=== PATIENT | female | born 1950 | race Asian ===

== ENCOUNTER → 2018-01-16 11:31 | Outpatient (CLI) | payer MEDICARE, OTHER, SELFPAY ==
--- NOTE | 2018-01-16 11:34 | DI.MRI.S_ITS ---
PROCEDURE: MR SHOULDER LT WO CON INDICATIONS: STRAIN OF UNSPECIFIED MUSCLE TECHNIQUE: Noncontrast oblique coronal T2 fast spin echo with fat saturation, oblique sagittal T1 spin echo and T2 fast spin echo with fat saturation, axial T1 spin echo and T2 fast spin echo with fat saturation through the shoulder. COMPARISON: [facility] Outside Film, RG, SHOULDER MIN 2VW (LT), 10/13/2017, 15:29. FINDINGS: Image quality: Diagnostic Rotator cuff: No definite full-thickness tear the rotator cuff is identified. However, there is a high-grade articular surface partial-thickness tear identified involving the anterior distal supraspinatus tendon at the level of the foot print with corresponding tendinopathy. Bursal surface fibers appear intact. There is corresponding tendinopathy. Low grade articular surface partial thickness tearing and tendinopathy is also present involving the distal subscapularis tendon. There is mild infraspinatus tendinopathy. The teres minor tendon is intact. There is no significant atrophy of the rotator cuff muscles. Bones and bursae: There is no acute fracture, dislocation, or suspicious osseous lesion of the osseous structures of the left shoulder. Mild degenerative changes of the glenohumeral joint are present. There are moderate degenerative changes of the acromioclavicular joint. A large amount of fluid is contained within the subacromial subdeltoid bursa. No significant joint effusions are evident. Capsule and soft tissues: Evaluation of the labrum and glenohumeral ligaments is difficult without intra-articular contrast. Heterogeneity of the superior labrum is identified, which may represent superior labral degeneration. No large paralabral cysts are evident. The long head of the biceps tendon is not definitely seen within the bicipital groove and may be completely torn. No acute injuries are suspected involving the glenohumeral ligaments. IMPRESSION: 1. High grade articular surface partial thickness tear of the distal supraspinatus tendon with corresponding tendinopathy. 2. Upper partial-thickness tearing and tendinopathy of the distal subscapularis tendon. 3. Mild infraspinatus tendinopathy. 4. Mild to moderate degenerative changes of the glenohumeral and acromioclavicular joints. 5. Superior labral tearing may be degenerative/chronic. 6. The long head of biceps tendon is not clearly seen, which is suspected to be at least partially torn. Please correlate clinically to exclude complete disruption of this tendon. Dictated by: Carlos Taylor M.D. on 01/16/2018 at 13:28 Approved by: Carlos Taylor M.D. on 01/16/2018 at 13:42
== END ==
PROVIDERS: Visit Provider Orthopaedic Surgery
DX: S43.492A Other sprain of left shoulder joint, initial encounter (principal); M75.112 Incomplete rotator cuff tear or rupture of left shoulder, not specified as traumatic; M19.012 Primary osteoarthritis, left shoulder
CPT/HCPCS: 73221

== ENCOUNTER → 2018-07-06 15:58 | Outpatient (CLI) | payer MEDICARE, OTHER, SELFPAY ==
--- NOTE | 2018-07-06 | DI.MRI.S_ITS ---
PROCEDURE: MR LUMBAR SPINE WO CON INDICATIONS: Low back pain TECHNIQUE: Noncontrast sagittal T1 spin echo and T2 fast echo, sagittal STIR, axial T1 and T2 fast spin echo through the lumbar spine. In cases with scoliosis, additional coronal T2 fast spin echo may be performed. COMPARISON: None. FINDINGS: Image quality: Excellent. Alignment and Curvature: There is normal bony alignment. Minimal anterolisthesis is seen at the L5-S1 level. Bone Marrow: Marrow is of normal overall signal. No acute vertebral body compression fractures. Spinal Cord: Conus medullaris terminates at the L1 level. Visualized cord demonstrates normal signal and size. Paraspinous Soft Tissues: No paravertebral masses. T12-L1: Normal appearance. L1-L2: Normal appearance. L2-L3: No significant abnormality is seen. L3-L4: The disc height is well-preserved. Loss of disc signal is seen at this level. Mild disc bulge is seen, which is eccentric to the right. There is a mild disc protrusion seen into the right neural foramen. There is mild to moderate right-sided and no significant left-sided neural foraminal narrowing seen. No significant central canal narrowing is seen. L4-L5: The disc height is well-preserved. Loss of disc signal is seen at this level. Mild generalized disc bulge is seen. Moderate facet joint hypertrophy is seen. Nxtu-kt-[id number] bilateral neural foraminal narrowing is seen. Minimal central canal narrowing is seen. L5-S1: The disc height is well-preserved. Loss of disc signal is seen at this level. Mild generalized disc bulge is seen. Moderate to prominent facet hypertrophy is seen. There is mild right-sided and no significant left-sided neural foraminal narrowing seen. No significant central canal narrowing is seen. IMPRESSION: Lumbar spine degenerative changes are seen, which are overall most prominent at the L5-S1 level. At the L3-L4 level, there is a disc protrusion seen into the right neural foramen, with associated mild to moderate right-sided neural foraminal narrowing. Dictated by: Nader Davenport M.D. on 07/06/2018 at 17:05 Approved by: Nader Davenport M.D. on 07/06/2018 at 17:09
== END ==
PROVIDERS: PCP Internal Medicine; Visit Provider Physical Medicine & Rehabilitation Pain Medicine
DX: M47.816 Spondylosis without myelopathy or radiculopathy, lumbar region (principal); M47.817 Spondylosis without myelopathy or radiculopathy, lumbosacral region; M51.26 Other intervertebral disc displacement, lumbar region; M48.061 Spinal stenosis, lumbar region without neurogenic claudication
CPT/HCPCS: 72148

== ENCOUNTER → 2019-01-05 13:44 | Outpatient (CLI) | payer MEDICARE, OTHER, SELFPAY ==
--- NOTE | 2019-01-05 | DI.MG.S_ITS ---
BILATERAL DIGITAL SCREENING MAMMOGRAM 3D/2D WITH CAD: 01/05/2019 CLINICAL: Routine screening. Comparison is made to exams dated: 12/20/2017 mammogram, 01/04/2017 mammogram, and 09/22/2015 mammogram - [facility]. There are scattered fibroglandular elements in both breasts. Current study was also evaluated with a Computer Aided Detection (CAD) system. No significant masses, calcifications, or other findings are seen in either breast. There has been no significant interval change. IMPRESSION: NEGATIVE There is no mammographic evidence of malignancy. A 1 year screening mammogram is recommended. This exam was interpreted at Station ID: [id number]. NOTE: For mammograms, a report in lay terms will be sent to the patient. Approximately 15% of breast malignancies will not be visualized mammographically. In the management of a palpable breast mass, a negative mammogram must not discourage biopsy of a clinically suspicious lesion. Electronically Signed By: Santana henry/sammie:01/07/2019 22:01:15 letter sent: Normal Exam ACR BI-RADS Category 1: Negative [id number]
== END ==
PROVIDERS: PCP Internal Medicine; Visit Provider Internal Medicine
DX: Z12.31 Encounter for screening mammogram for malignant neoplasm of breast (principal)
CPT/HCPCS: 77063; 77067

== ENCOUNTER → 2019-05-09 12:15 | Outpatient (CLI) | payer MEDICARE, OTHER, SELFPAY ==
[2019-05-09 13:02] LABS: BUN Creatinine Ratio 24.3 (6-22); Blood Urea Nitrogen 17 mg/dL (7-17); Calcium 9.7 mg/dL (8.4-10.2); Carbon Dioxide 26 mmol/L (22-32); Chloride 103 mmol/L (98-107); Estimated Glomerular Filt Rate > 60.0 mL/min (>60); Glucose 110 mg/dL (80-110); HEMOLYSIS < 15 (0-50); Potassium 4.5 mmol/L (3.4-5.1); Sodium 139 mmol/L (137-145)
== END ==
PROVIDERS: PCP Internal Medicine; Referring Provider Internal Medicine; Visit Provider Internal Medicine
DX: I10 Essential (primary) hypertension (principal)
CPT/HCPCS: 36415; 80048

== ENCOUNTER 2019-06-26 10:50 | Emergency (ER) | payer MEDICARE, OTHER, SELFPAY ==
[2019-06-26 10:59] VITALS: BP 193/108; PULSE 100; RESP 12; TEMP 36.6; O2SAT 100
--- NOTE | 2019-06-26 11:27 | DI.MRI.S_ITS ---
PROCEDURE: MR KNEE LT WO CON INDICATIONS: injury, swelling, neuro vasc changes distal TECHNIQUE: Noncontrast sagittal PD fast spin echo and T2 fast spin echo with fat saturation, sagittal 3-D FLASH with fat saturation; coronal T1 spin echo and PD fast spin echo with fat saturation, and axial PD fast spin echo with fat saturation through the knee. COMPARISON: None. FINDINGS: Image quality: Excellent. Menisci: The linear oblique high T2 signal intensity traverses the posterior horn medial meniscus, demonstrating inferior articular surface extension. Degenerative fraying of the free edge of the anterior horn medial meniscus. Linear oblique high T2 signal intensity traverses the anterior horn lateral meniscus, demonstrating inferior articular surface extension. Horizontally oriented high T2 signal intensity traverses the posterior horn lateral meniscus free edge, demonstrating inferior articular surface extension. Cruciate ligaments: There is a small focus of linear high T2 signal intensity within the mid and inferior posterior cruciate ligament, indicating low-grade partial-thickness tearing. There is mild redundancy of the anterior cruciate ligament which demonstrates moderate enlargement and internal T2 signal lesion, indicating partial thickness tearing. Medial structures: The medial collateral ligament appears intact. Visualized portions of the pes anserinus tendons appear normal. No abnormal bursal fluid. Lateral structures: The lateral collateral ligament demonstrates moderate T2 signal elevation at its femoral origin. The long and short heads of the biceps femoris tendon appear intact. The popliteus tendon appears normal. Iliotibial band appears normal. Anterior structures: The quadriceps and patellar tendons appear intact. Patellar alignment is normal. No femoral trochlear dysplasia or ventral trochlear prominence. No edema in the infrapatellar fat pad. Bones and cartilage: No bone marrow contusions or fractures. Mild tricompartmental periarticular osteophyte formation. Mild articular cartilage loss diffusely overlies the weightbearing aspects of the medial and lateral compartments. Joint space: There is a moderate knee joint effusion and a small Michel's cyst. Normal appearing synovial plicae are incidentally noted. IMPRESSION: 1. Partial-thickness tears of the anterior and posterior cruciate ligaments. 2. Medial and lateral meniscal tearing. 3. Knee joint effusion and Michel's cyst. 4. Partial-thickness lateral collateral ligament tear. Dictated by: Angie Pop M.D. on 06/26/2019 at 14:10 Approved by: Angie Pop M.D. on 06/26/2019 at 14:15
--- NOTE | 2019-06-26 11:28 | ED.LOWEXIN ---
HPI - Extremity Injury (Lower) General Chief Complaint: Extremity Injury, Lower Stated Complaint: Lt knee Time Seen by Provider: 06/26/19 11:03 Mode of arrival: Wheelchair History of Present Illness HPI Narrative: 68-year-old type 2 diabetic with hypertension hyperlipidemia presents 3 weeks after a left knee injury. She was doing some housework and had a twisting turning type injury to the left knee. Because of current Covid19 concerns, she did not seek any medical intervention. The knee was initially swollen and very tender. It has remained swollen, non erythematous, and she notices decreased sensation from the knee distal. Also complains that that foot is significantly colder than the right foot. She remains unable to bear any weight at all on the left extremity. Related Data Home Medications Medication Instructions Recorded Confirmed COQ10 300 mg PO DAILY 06/26/18 12/27/18 amitriptyline 25 mg tablet 25 mg PO DAILY 06/26/18 12/27/18 aspirin 81 mg tablet,delayed 81 mg PO DAILY 06/26/18 12/27/18 release azelastine 137 mcg (0.1 %) nasal 2 spray NASAL BID 06/26/18 12/27/18 spray aerosol calcium carbonate 333 mg-magnesium tab PO tab 06/26/18 12/27/18 oxide 133 mg-zinc gluc 5 mg tablet carboxymethylcellulose sodium EYE-BOTH ml 06/26/18 12/27/18 esomeprazole magnesium 40 mg 40 mg PO DAILY cap 06/26/18 12/27/18 capsule,delayed release fexofenadine 180 mg tablet 180 mg PO DAILY 06/26/18 12/27/18 ibuactin and migragard PO 06/26/18 12/27/18 krill oil 500 mg capsule mg PO cap 06/26/18 12/27/18 lisinopril 5 mg tablet 5 mg PO DAILY 06/26/18 12/27/18 lysine 500 mg tablet 500 mg PO DAILY 06/26/18 12/27/18 metformin 1,000 mg tablet 1,000 mg PO BID 06/26/18 12/27/18 simvastatin 40 mg tablet 40 mg PO BEDTIME 06/26/18 12/27/18 Respironics Dreamstation CPAP #1 ea 06/28/18 12/27/18 Allergies Allergy/AdvReac Type Severity Reaction Status Date / Time No Known Drug Allergies Allergy Unverified 06/28/18 10:26 Review of Systems Review of Systems Narrative: Pertinent positive and negative findings as per HPI, including MS: numbness, joint swelling and warmth left lower extremity with inability to walk and significant gait disturbance due to that. Remainder of review of systems is otherwise unremarkable for Constitutional: Fevers, chills, weakness ENT: No sore throat, neck pain, ear pain CV: Chest pain, palpitations, dyspnea on exertion Respiratory: Cough, wheeze, dyspnea GI: Nausea, vomiting, diarrhea, change in bowel habits, black or bloody stools : Dysuria, hematuria, flank pain Psych: Depression, anxiety, suicidal ideation Endocrine: Fatigue, heat or cold intolerance, very dry skin Heme: Easy bruising or bleeding Allergy: Seasonal rhinorrhea, itchy eyes Patient History Medical History Depression (Chronic) GERD (gastroesophageal reflux disease) (Chronic) Hyperlipidemia (Chronic) Hypertension (Chronic) Obstructive sleep apnea of adult (Chronic) Type 2 diabetes mellitus (Chronic) Social History marital status: details: to Melvin, lives in [place] household members: spouse lives independently: Yes caregiver/support person: No housing: house Smoking Status: Never smoker Smoking Status: Never smoker alcohol intake frequency: holidays/special occasions only Substance Use Type: does not use Exam Narrative Exam Narrative: General: Alert appropriate in no acute distress Respiratory: Able to speak in full sentences, no obvious respiratory distress Skin: No obvious rashes, warm and dry Neurologic: Grossly intact no obvious asymmetries or abnormalities Psych, appropriate insight and affect, cooperative Extremities: Left knee with joint effusion mediolateral and suprapatellar, tender with any manipulation and full exam is limited due to this. She is tender in the popliteal fossa and the distal portion of the leg has decreased sensation to fine touch compared to the right side in a stocking like distribution. She has palpable dorsalis pedis and posterior tibialis pulses on the left side however they are subjectively diminished in comparison to the right side. Due to edema I am not able to palpate popliteal arteries. She has full and symmetrical inguinal arterial pulses. She is able to flex and extend ankle as well as all toes on the left side. There is no skin breakdown. She does have reasonable capillary refill however approximately 2 cm slower on the left than the right side. Initial Vital Signs Initial Vital Signs: Vital Signs Temperature 98 F 06/26/19 10:59 Pulse Rate 100 H 06/26/19 10:59 Respiratory Rate 12 06/26/19 10:59 Blood Pressure 193/108 H 06/26/19 10:59 Pulse Oximetry 100 06/26/19 10:59 Course Orders Ordered: ED Orders 06/26/19 11:27 MR knee LT wo con Stat Vital Signs Vital signs: Vital Signs - 8 hr 06/26/19 10:59 06/26/19 12:23 06/26/19 14:50 Temperature 98 F Pulse Rate 100 H 89 Respiratory Rate 12 Blood Pressure 193/108 H Blood Pressure [Right Arm] 128/69 124/81 Pulse Oximetry 100 98 MDM - Extremity Injury (Lower) Medical Records Attestation: I reviewed the patient's medical records. Lab Data Labs: Point of Care Testing Glucose POC 109 Imaging Data CA knee: Radiologist's Impression: IMPRESSION: 1. Partial-thickness tears of the anterior and posterior cruciate ligaments. 2. Medial and lateral meniscal tearing. 3. Knee joint effusion and Michel's cyst. 4. Partial-thickness lateral collateral ligament tear. Dictated by: Angie Pop M.D. on 06/26/2019 at 14:10 MDM Narrative Medical decision making narrative: 68-year-old woman with left knee injury 3 weeks ago this is her initial encounter for follow-up. Continued swelling and inability to bear weight. I am concerned with the complaints of decreased sensation distally as well as the slight decrease in capillary refill and distal pulses that do not seem quite as full as the right side. With the twisting turning injury she may have some type of dissection it may simply be that it has decreased lymphatic and or venous blood flow due to the knee effusion that is causing congestion and associated symptoms in the left lower extremity. Of note, there is not more edema in the ankle foot or lower leg in comparison to the right side. In discussion with Radiology, we opted to proceed with MRI of the left knee initially. If there is an obvious musculoskeletal abnormality then it may make vascular imaging left pertinent. With a degree of injury to almost all of the components of the knee, including tears of the anterior and posterior cruciate ligaments, medial and lateral meniscal tears, lateral collateral ligament tear and a joint effusion and Michel cyst the pain, swelling and intermittent numbness are explained. She will be placed in a knee immobilizer with follow-up with ortho. Discharge Plan Departure Patient Disposition: Home Clinical Impression: Tear of both anterior and posterior cruciate ligaments of knee, Effusion of knee joint, left Acute meniscal tear, lateral Qualifiers: Encounter type: initial encounter Laterality: left Qualified Code(s): S83.282A - Other tear of lateral meniscus, current injury, left knee, initial encounter Acute meniscal tear, medial Qualifiers: Encounter type: initial encounter Laterality: left Qualified Code(s): S83.242A - Other tear of medial meniscus, current injury, left knee, initial encounter Tear of knee, lateral collateral ligament Qualifiers: Encounter type: initial encounter Laterality: left Qualified Code(s): S83.422A - Sprain of lateral collateral ligament of left knee, initial encounter Michel's cyst Qualifiers: Laterality: left Qualified Code(s): M71.22 - Synovial cyst of popliteal space [Michel], left knee Discharge Date/Time: 06/26/19 15:15 Instructions: DI for Anterior Cruciate Ligament Injury, DI for Meniscal Tear Activity Restrictions/Additional Instructions: Thank you for coming in today You had a significant knee injury and may end up needing surgery. You have partial tears of both the anterior and posterior cruciate ligaments, partial tears of the medial and lateral meniscus and a partial tear of the lateral collateral ligament Please use the crutches and a wheelchair as needed. This knee is not stable and you should not be walking on it. Dr Brantley with help with an appropriate brace for you to use when you see her tomorrow. Ice can certainly help with the pain. Using 400 mg of ibuprofen (2 [id number] pills) and 1 Tylenol every 6 hours can be very helpful in controlling pain. You have and apt with Dr Daisy Brantley tomorrow at 9am, [place] office. I hope you heal quickly Prescriptions: No Action fexofenadine 180 mg tablet 180 mg PO DAILY RF: 0 aspirin [Adult Low Dose Aspirin] 81 mg tablet,delayed release (DR/EC) 81 mg PO DAILY RF: 0 simvastatin 40 mg tablet 40 mg PO BEDTIME RF: 0 amitriptyline 25 mg tablet 25 mg PO DAILY RF: 0 metformin 1,000 mg tablet 1,000 mg PO BID RF: 0 esomeprazole magnesium 40 mg capsule,delayed release(DR/EC) 40 mg PO DAILY RF: 0 lisinopril 5 mg tablet 5 mg PO DAILY RF: 0 azelastine 137 mcg (0.1 %) aerosol,spray 2 spray NASAL BID RF: 0 lysine 500 mg tablet 500 mg PO DAILY RF: 0 carboxymethylcellulose sodium drops EYE-BOTH RF: 0 krill oil 500 mg capsule PO RF: 0 calcium carb-mag ox-zinc gluc 333-133-5 mg tablet PO RF: 0 COQ10 300 mg PO DAILY RF: 0 ibuactin and migragard PO RF: 0 (DME) Respironics Dreamstation CPAP Qty: 1 RF: 0 Referrals: Kristine Silver [Primary Care Provider] - Daisy Brantley MD [Physician] -
[2019-06-26 12:23] VITALS: BP 128/69
--- NOTE | 2019-06-26 14:36 | PC.NURSE ---
pt reports, cleaning floor by foot, 3 weeks ago heard a cruch, pt continue to be working on the yard, then pt heard a pop 2 weeks ago, now , pt reports, increase in swellilng and pain left knee. sensation of numbness and tingling, cold sensation left lower leg, hx of dm.
[2019-06-26 14:50] VITALS: BP 124/81; PULSE 89; O2SAT 98
== END 2019-06-26 15:15 | disposition home or self-care (01) ==
PROVIDERS: Emergency Provider Emergency Medicine; PCP Internal Medicine
DX: S83.519A Sprain of anterior cruciate ligament of unspecified knee, initial encounter (principal); S83.282A Other tear of lateral meniscus, current injury, left knee, initial encounter; S83.242A Other tear of medial meniscus, current injury, left knee, initial encounter; S83.422A Sprain of lateral collateral ligament of left knee, initial encounter; M71.22 Synovial cyst of popliteal space [Baker], left knee; M25.462 Effusion, left knee; I10 Essential (primary) hypertension; E78.5 Hyperlipidemia, unspecified; E11.9 Type 2 diabetes mellitus without complications
CPT/HCPCS: 73721; 82962; 99283

== ENCOUNTER 2020-01-04 06:19 | Emergency (ER) | payer MEDICARE, OTHER, SELFPAY ==
[2020-01-04] VITALS (11 sets, daily range): BP systolic 136–175; BP diastolic 63–84; PULSE 66–96; RESP 16–18; TEMP 36.6; O2SAT 97–100
--- NOTE | 2020-01-04 06:47 | ED.ABDPAIN ---
HPI - Abdominal Pain <Fernandez Wild, DO - Last Filed: 01/04/20 19:28> General Chief Complaint: Abdominal Pain Stated Complaint: Lower right side pain, more by her bellybutton Time Seen by Provider: 01/04/20 06:34 Source: patient Mode of arrival: Ambulatory Limitations: no limitations History of Present Illness HPI narrative: Patient is a 69-year-old female here for evaluation of lower abdomen with right side being the most uncomfortable abdominal pain. Patient states she has had some low-grade abdominal pain over the past couple days however overnight the pain became suddenly worse. She states it is a sharp pain. Worse with lying down and touching. It seems to be located on both sides of her lower abdomen however she does report that is worse on the right side is radiating to her back. She is having some dysuria. No vaginal bleeding. No change in bowel habits. No nausea vomiting. Has not tried anything for symptoms prior to arrival. She states that when the pain was at its worst her blood pressure was elevated. She denies any chest pain or shortness of breath. Related Data Home Medications Medication Instructions Recorded Confirmed COQ10 300 mg PO DAILY 06/26/18 12/27/18 amitriptyline 25 mg tablet 25 mg PO DAILY 06/26/18 12/27/18 aspirin 81 mg tablet,delayed 81 mg PO DAILY 06/26/18 12/27/18 release azelastine 137 mcg (0.1 %) nasal 2 spray NASAL BID 06/26/18 12/27/18 spray aerosol calcium carbonate 333 mg-magnesium tab PO tab 06/26/18 12/27/18 oxide 133 mg-zinc gluc 5 mg tablet carboxymethylcellulose sodium EYE-BOTH ml 06/26/18 12/27/18 esomeprazole magnesium 40 mg 40 mg PO DAILY cap 06/26/18 12/27/18 capsule,delayed release fexofenadine 180 mg tablet 180 mg PO DAILY 06/26/18 12/27/18 ibuactin and migragard PO 06/26/18 12/27/18 krill oil 500 mg capsule mg PO cap 06/26/18 12/27/18 lisinopril 5 mg tablet 5 mg PO DAILY 06/26/18 12/27/18 lysine 500 mg tablet 500 mg PO DAILY 06/26/18 12/27/18 metformin 1,000 mg tablet 1,000 mg PO BID 06/26/18 12/27/18 simvastatin 40 mg tablet 40 mg PO BEDTIME 06/26/18 12/27/18 Respironics Dreamstation CPAP #1 [id number] 06/28/18 12/27/18 Previous Rx's Medication Instructions Recorded ciprofloxacin HCl [Cipro] 500 mg PO BID #20 tab 01/04/20 metronidazole [Flagyl] 500 mg PO Q8H #30 tab 01/04/20 Allergies Allergy/AdvReac Type Severity Reaction Status Date / Time No Known Drug Allergies Allergy Unverified 06/28/18 10:26 Review of Systems <Fernandez Wild DO - Last Filed: 01/04/20 19:28> Constitutional Constitutional: Denies fever(s) and Denies headache(s) ENT Ears, Nose, Mouth, and Throat: Denies headache(s) Cardiovascular Cardiovascular: Denies chest pain and Denies dyspnea Respiratory Respiratory: Denies dyspnea Gastrointestinal Gastrointestinal: Reports abdominal pain, Denies melena, Denies change in bowel habits, Denies constipation, Denies diarrhea, Denies nausea and Denies vomiting Genitourinary Genitourinary: Reports dysuria, Denies urinary hesitancy, Denies urinary incontinence and Denies urinary urgency Genitourinary: Reports dysuria, Denies urinary incontinence, Denies urinary hesitancy, Denies urinary urgency and Denies vaginal discharge Musculoskeletal Musculoskeletal: Denies arthralgias, Reports back pain (Lower back pain) and Denies myalgias Integumentary/Breasts Skin/Breast: Denies rash Neurologic Neurologic: Denies behavioral changes, Denies confusion and Denies headache(s) Psychiatric Psychiatric: Denies behavioral changes and Denies confusion Hematologic/Lymphatic Hematologic/Lymphatic: Denies easy bleeding and Denies easy bruising Allergic/Immunologic Allergic/Immunologic: Denies urticaria Patient History <Fernandez Wild DO - Last Filed: 01/04/20 19:28> Medical History Depression (Chronic) GERD (gastroesophageal reflux disease) (Chronic) Hyperlipidemia (Chronic) Hypertension (Chronic) Obstructive sleep apnea of adult (Chronic) Type 2 diabetes mellitus (Chronic) Social History marital status: details: to Melvin, lives in [place] household members: spouse lives independently: Yes caregiver/support person: No housing: house Smoking Status: Never smoker Smoking Status: Never smoker alcohol intake frequency: holidays/special occasions only Substance Use Type: does not use Exam <DO Lilliana Bullock Last Filed: 01/04/20 19:28> Initial Vital Signs Initial Vital Signs: Vital Signs Temperature 98 F 01/04/20 06:20 Pulse Rate 96 H 01/04/20 06:20 Respiratory Rate 18 01/04/20 06:20 Blood Pressure 175/84 H 01/04/20 06:20 Pulse Oximetry 98 01/04/20 06:20 Const General: cooperative and comfortable Limitations: mental status not altered HENDE Head: normal to inspection and normocephalic Resp Effort & Inspection: normal respiratory effort Cardio Rate: regular rate GI Inspection: non-distended Palpation: soft, No firm, guarding and tender (Right lower quadrant) Skin Lesions: no lesions Rashes: no rashes Neuro General: patient alert, patient awake and patient oriented x3 Cognition: normal cognition Speech: speech normal Gait: normal gait Extrem General: normal to inspection and capillary refill normal Psych Appearance: grossly normal and well kempt <Conchita Mckeon DO - Last Filed: 01/04/20 11:18> Initial Vital Signs Initial Vital Signs: Vital Signs Temperature 98 F 01/04/20 06:20 Pulse Rate 96 H 01/04/20 06:20 Respiratory Rate 18 01/04/20 06:20 Blood Pressure 175/84 H 01/04/20 06:20 Pulse Oximetry 98 01/04/20 06:20 Scores <DO Lilliana Bullock Last Filed: 01/04/20 19:28> GCS [place] coma scale eye opening: Spontaneous [place] coma scale verbal response: Orientated Eliseo coma scale motor response: Obey commands Eliseo coma scale total score: 15 Course <DO Lilliana Bullock Last Filed: 01/04/20 19:28> Orders Ordered: Discontinued Medications Sodium Chloride (Normal Saline 0.9%) 1,000 mls @ 1,000 mls/hr IV BOLUS ONE Stop: 01/04/20 09:15 Last Infusion: 01/04/20 10:02 Dose: 0 mls/hr Documented by: Admin: 01/04/20 08:20 Dose: 1,000 mls/hr Documented by: MADELINE Levofloxacin (Levaquin) 750 mg in 150 mls @ 100 mls/hr IV NOW ONE Stop: 01/04/20 09:58 Last Infusion: 01/04/20 13:22 Dose: 0 mls/hr Documented by: Admin: 01/04/20 09:07 Dose: 100 mls/hr Documented by: MADELINE Metronidazole (Flagyl) 500 mg in 100 mls @ 100 mls/hr IV NOW ONE Stop: 01/04/20 09:28 Last Infusion: 01/04/20 10:09 Dose: 0 mls/hr Documented by: Admin: 01/04/20 09:00 Dose: 100 mls/hr Documented by: MADELINE Sodium Chloride (Normal Saline 0.9%) 1,000 mls @ 1,000 mls/hr IV BOLUS ONE Stop: 01/04/20 09:28 Last Infusion: 01/04/20 13:22 Dose: 0 mls/hr Documented by: Admin: 01/04/20 09:01 Dose: 1,000 mls/hr Documented by: MADELINE Vital Signs Vital signs: Vital Signs - 8 hr 01/04/20 06:20 01/04/20 07:04 01/04/20 07:30 Temperature 98 F Pulse Rate 96 H 79 76 Respiratory Rate 18 Blood Pressure 175/84 H Pulse Oximetry 98 98 97 01/04/20 08:03 01/04/20 08:04 01/04/20 08:30 Temperature Pulse Rate 74 73 74 Respiratory Rate 16 Blood Pressure 151/67 H Pulse Oximetry 99 99 99 01/04/20 08:31 01/04/20 09:00 01/04/20 09:30 Temperature Pulse Rate 73 74 68 Respiratory Rate 16 16 16 Blood Pressure 136/63 139/79 156/66 H Pulse Oximetry 99 99 99 01/04/20 10:00 01/04/20 10:30 Temperature Pulse Rate 67 66 Respiratory Rate 16 16 Blood Pressure 166/72 H 149/70 H Pulse Oximetry 100 100 <Conchita Mckeon, - Last Filed: 01/04/20 11:18> Orders Ordered: Discontinued Medications Sodium Chloride (Normal Saline 0.9%) 1,000 mls @ 1,000 mls/hr IV BOLUS ONE Stop: 01/04/20 09:15 Last Infusion: 01/04/20 10:02 Dose: 0 mls/hr Documented by: Admin: 01/04/20 08:20 Dose: 1,000 mls/hr Documented by: MADELINE Levofloxacin (Levaquin) 750 mg in 150 mls @ 100 mls/hr IV NOW ONE Stop: 01/04/20 09:58 Last Infusion: 01/04/20 13:22 Dose: 0 mls/hr Documented by: Admin: 01/04/20 09:07 Dose: 100 mls/hr Documented by: MADELINE Metronidazole (Flagyl) 500 mg in 100 mls @ 100 mls/hr IV NOW ONE Stop: 01/04/20 09:28 Last Infusion: 01/04/20 10:09 Dose: 0 mls/hr Documented by: Admin: 01/04/20 09:00 Dose: 100 mls/hr Documented by: MADELINE Sodium Chloride (Normal Saline 0.9%) 1,000 mls @ 1,000 mls/hr IV BOLUS ONE Stop: 01/04/20 09:28 Last Infusion: 01/04/20 13:22 Dose: 0 mls/hr Documented by: Admin: 01/04/20 09:01 Dose: 1,000 mls/hr Documented by: MADELINE Vital Signs Vital signs: Vital Signs - 8 hr 01/04/20 06:20 01/04/20 07:04 01/04/20 07:30 Temperature 98 F Pulse Rate 96 H 79 76 Respiratory Rate 18 Blood Pressure 175/84 H Pulse Oximetry 98 98 97 01/04/20 08:03 01/04/20 08:04 01/04/20 08:30 Temperature Pulse Rate 74 73 74 Respiratory Rate 16 Blood Pressure 151/67 H Pulse Oximetry 99 99 99 01/04/20 08:31 01/04/20 09:00 01/04/20 09:30 Temperature Pulse Rate 73 74 68 Respiratory Rate 16 16 16 Blood Pressure 136/63 139/79 156/66 H Pulse Oximetry 99 99 99 01/04/20 10:00 01/04/20 10:30 Temperature Pulse Rate 67 66 Respiratory Rate 16 16 Blood Pressure 166/72 H 149/70 H Pulse Oximetry 100 100 MDM - Abdominal Pain <Fernandez Lanker, DO - Last Filed: 01/04/20 19:28> Lab Data Result diagrams: 01/04/20 07:00 01/04/20 07:00 Labs: Lab Results 01/04/20 01/04/20 01/04/20 Range/Units 07:00 07:00 07:00 WBC 7.7 (4.5-11.0) X10^3/uL RBC 5.13 (4.0-5.2) X10^6/uL Hgb 14.9 (12.0-16.0) g/dL Hct 44.6 (36-46) % MCV 86.8 (80-100) fL MCH 29.0 (26-34) PG MCHC 33.4 (30-36) % RDW 13.1 (11.6-14.8) % Plt Count 200 (150-400) X10^3/uL Neut % (Auto) 45.4 L (50-75) % Lymph % (Auto) 39.1 (25-40) % [place] % (Auto) 9.7 (3-14) % Eos % (Auto) 5.0 H (2-4) % Baso % (Auto) 0.8 (0-2) % Neut # (Auto) 3500 (2811-6615) /uL Lymph # (Auto) 3000 (2271-3407) /uL [place] # (Auto) 700 (0-900) /uL Eos # (Auto) 400 (0-450) /uL Baso # (Auto) 100 (0-100) /uL Sodium 138 (137-145) mmol/L Potassium 4.4 (3.4-5.1) mmol/L Chloride 104 (98-107) mmol/L Carbon Dioxide 24 (22-32) mmol/L BUN 18 H (7-17) mg/dL Creatinine 0.60 (0.52-1.04) mg/dL Estimated GFR > 60.0 (>60) mL/min BUN/Creatinine Ratio 30.0 H (6-22) Glucose 172 H (80-110) mg/dL Lactate 3.1 H (0.7-2.1) mmol/L Calcium 9.6 (8.4-10.2) mg/dL Total Bilirubin 0.5 (0.2-1.3) mg/dL AST 42 H (14-36) IU/L ALT 46 H (<35) IU/L Alkaline Phosphatase 94 (38-126) U/L Total Protein 7.7 (6.3-8.2) g/dL Albumin 4.5 (3.5-5.0) g/dL Globulin 3.2 (1.7-4.1) g/dL Albumin/Globulin Ratio 1.4 (1.0-2.8) Lipase (23-300) U/L 01/04/20 01/04/20 Range/Units 07:00 10:00 WBC (4.5-11.0) X10^3/uL RBC (4.0-5.2) X10^6/uL Hgb (12.0-16.0) g/dL Hct (36-46) % MCV (80-100) fL MCH (26-34) PG MCHC (30-36) % RDW (11.6-14.8) % Plt Count (150-400) X10^3/uL Neut % (Auto) (50-75) % Lymph % (Auto) (25-40) % [place] % (Auto) (3-14) % Eos % (Auto) (2-4) % Baso % (Auto) (0-2) % Neut # (Auto) (0350-8812) /uL Lymph # (Auto) (3440-6370) /uL [place] # (Auto) (0-900) /uL Eos # (Auto) (0-450) /uL Baso # (Auto) (0-100) /uL Sodium (137-145) mmol/L Potassium (3.4-5.1) mmol/L Chloride (98-107) mmol/L Carbon Dioxide (22-32) mmol/L BUN (7-17) mg/dL Creatinine (0.52-1.04) mg/dL Estimated GFR (>60) mL/min BUN/Creatinine Ratio (6-22) Glucose (80-110) mg/dL Lactate 2.1 (0.7-2.1) mmol/L Calcium (8.4-10.2) mg/dL Total Bilirubin (0.2-1.3) mg/dL AST (14-36) IU/L ALT (<35) IU/L Alkaline Phosphatase (38-126) U/L Total Protein (6.3-8.2) g/dL Albumin (3.5-5.0) g/dL Globulin (1.7-4.1) g/dL Albumin/Globulin Ratio (1.0-2.8) Lipase 167 (23-300) U/L Point of care testing: Urine Dip Bedside Urine Glucose Negative Bedside Urine Bilirubin - Negative Bedside Urine Ketone - Negative Urine Specific [place] 1.015 Bedside Urine Occult Blood - Negative Bedside Urine pH 6.0 Bedside Urine Protein - Negative Bedside Urine Urobilinogen - Negative Bedside Urine Nitrite - Negative Bedside Urine Leukocytes - Negative Esterase MDM Narrative Medical decision making narrative: Despite her dysuria the patient's urinalysis shows no signs of infection. Has had the lower abdominal pain for the past couple days but it did worsen last evening and woke her up from her sleep. She is somewhat tender on both sides of her lower abdomen but it does seem to be located in the right lower quadrant with guarding. She is afebrile. Not tachycardic. She denied the offer for any nausea or pain medication. Given her age in her symptoms of feel labs and CT scan are warranted. Care turned over to Dr. Mckeon at change of shift to follow up on labs and CT result. <Conchita Mckeon, DO - Last Filed: 01/04/20 11:18> Lab Data Attestation: I reviewed the patient's lab results. Labs: Lab Results 01/04/20 01/04/20 01/04/20 Range/Units 07:00 07:00 07:00 WBC 7.7 (4.5-11.0) X10^3/uL RBC 5.13 (4.0-5.2) X10^6/uL Hgb 14.9 (12.0-16.0) g/dL Hct 44.6 (36-46) % MCV 86.8 (80-100) fL MCH 29.0 (26-34) PG MCHC 33.4 (30-36) % RDW 13.1 (11.6-14.8) % Plt Count 200 (150-400) X10^3/uL Neut % (Auto) 45.4 L (50-75) % Lymph % (Auto) 39.1 (25-40) % [place] % (Auto) 9.7 (3-14) % Eos % (Auto) 5.0 H (2-4) % Baso % (Auto) 0.8 (0-2) % Neut # (Auto) 3500 (4169-2597) /uL Lymph # (Auto) 3000 (2730-6356) /uL [place] # (Auto) 700 (0-900) /uL Eos # (Auto) 400 (0-450) /uL Baso # (Auto) 100 (0-100) /uL Sodium 138 (137-145) mmol/L Potassium 4.4 (3.4-5.1) mmol/L Chloride 104 (98-107) mmol/L Carbon Dioxide 24 (22-32) mmol/L BUN 18 H (7-17) mg/dL Creatinine 0.60 (0.52-1.04) mg/dL Estimated GFR > 60.0 (>60) mL/min BUN/Creatinine Ratio 30.0 H (6-22) Glucose 172 H (80-110) mg/dL Lactate 3.1 H (0.7-2.1) mmol/L Calcium 9.6 (8.4-10.2) mg/dL Total Bilirubin 0.5 (0.2-1.3) mg/dL AST 42 H (14-36) IU/L ALT 46 H (<35) IU/L Alkaline Phosphatase 94 (38-126) U/L Total Protein 7.7 (6.3-8.2) g/dL Albumin 4.5 (3.5-5.0) g/dL Globulin 3.2 (1.7-4.1) g/dL Albumin/Globulin Ratio 1.4 (1.0-2.8) Lipase (23-300) U/L 01/04/20 01/04/20 Range/Units 07:00 10:00 WBC (4.5-11.0) X10^3/uL RBC (4.0-5.2) X10^6/uL Hgb (12.0-16.0) g/dL Hct (36-46) % MCV (80-100) fL MCH (26-34) PG MCHC (30-36) % RDW (11.6-14.8) % Plt Count (150-400) X10^3/uL Neut % (Auto) (50-75) % Lymph % (Auto) (25-40) % [place] % (Auto) (3-14) % Eos % (Auto) (2-4) % Baso % (Auto) (0-2) % Neut # (Auto) (7416-8935) /uL Lymph # (Auto) (8925-6694) /uL [place] # (Auto) (0-900) /uL Eos # (Auto) (0-450) /uL Baso # (Auto) (0-100) /uL Sodium (137-145) mmol/L Potassium (3.4-5.1) mmol/L Chloride (98-107) mmol/L Carbon Dioxide (22-32) mmol/L BUN (7-17) mg/dL Creatinine (0.52-1.04) mg/dL Estimated GFR (>60) mL/min BUN/Creatinine Ratio (6-22) Glucose (80-110) mg/dL Lactate 2.1 (0.7-2.1) mmol/L Calcium (8.4-10.2) mg/dL Total Bilirubin (0.2-1.3) mg/dL AST (14-36) IU/L ALT (<35) IU/L Alkaline Phosphatase (38-126) U/L Total Protein (6.3-8.2) g/dL Albumin (3.5-5.0) g/dL Globulin (1.7-4.1) g/dL Albumin/Globulin Ratio (1.0-2.8) Lipase 167 (23-300) U/L Point of care testing: Urine Dip Bedside Urine Glucose Negative Bedside Urine Bilirubin - Negative Bedside Urine Ketone - Negative Urine Specific [place] 1.015 Bedside Urine Occult Blood - Negative Bedside Urine pH 6.0 Bedside Urine Protein - Negative Bedside Urine Urobilinogen - Negative Bedside Urine Nitrite - Negative Bedside Urine Leukocytes - Negative Esterase Imaging Data CT scan - abdomen/pelvis: Radiologist's Impression: PROCEDURE: CT ABDOMEN PELVIS W CON INDICATIONS: Right lower quadrant abdominal pain TECHNIQUE: After the administration of intravenous contrast, 5 mm thick sections acquired from the diaphragm to the symphysis. 5 mm coronal and sagittal reformats were acquired. For radiation dose reduction, the following was used: automated exposure control, adjustment of mA and/or kV according to patient size. COMPARISON: None. FINDINGS: Image quality: Excellent. ABDOMEN: Lung bases: Lung bases are clear. Heart size is normal. Solid organs: Moderate hepatics steatosis. Liver is otherwise normal in size and enhancement. Gallbladder has been removed. . Biliary system is non dilated. Pancreas enhances normally. Spleen is normal in size and enhancement. No adrenal nodules. Kidneys demonstrate normal size and enhancement, without hydronephrosis. Peritoneum and bowel: Small focus of diverticulitis in the descending colon, with the inflamed diverticulum visualized on series 2, image 42 projecting anteriorly from the colon, with surrounding inflammatory change. No perforation or abscess. Large volume of formed stool throughout the colon. No abnormally dilated loop of bowel. Nodes and vessels: No retroperitoneal or mesenteric adenopathy by size criteria. Aorta and inferior vena cava are normal in size. Miscellaneous: No ventral hernias. PELVIS: Genitourinary: Bladder wall thickness is normal. Miscellaneous: No inguinal hernias or adenopathy. Bones: No suspicious bony lesions. No vertebral body compression fractures. IMPRESSION: Acute diverticulitis without perforation of abscess. Dictated by: Carter Robert M.D. on 01/04/2020 at 8:14 Approved by: Carter Robert M.D. on 01/04/2020 at 8:36 [facility] Narrative Medical decision making narrative: Patient signed out to me by Dr. Wild. 69-year-old female who has had abdominal pain ongoing for the last 3 days progressively getting worse. Seems to be more localized on the right side than the left. She denies any nausea vomiting or fever he has been able to eat. She said the pain was so sharp last night she felt like her was stabbing her. She does have a history of kidney stones this does not feel like kidney stones. She is having back pain as well. Blood work does show a lactate of 3.1. With a normal white count. CT reveals diverticulitis no leukocytosis lactate improved with IV fluids she is given initial doses of IV antibiotics. At this time can follow up as outpatient with p.o. antibiotics and return as needed Discharge Plan Departure Patient Disposition: Home Clinical Impression: Diverticulitis Discharge Date/Time: 01/04/20 10:43 Instructions: DI for Diverticulitis Activity Restrictions/Additional Instructions: *You have been diagnosed with diverticulitis *What to do: Recommend clear liquid diet for the next 1-2 days and may advance as tolerated *Continue to take medications as directed Flagyl 500 mg 3 times a day for 10 days Cipro 500 mg twice a day for 10 days *Follow up with your primary care provider in 2-3 days *Return to ER if you should have increased abdominal pain, bloody stools, nausea or vomiting or any new, worsening or concerning symptoms Prescriptions: New metronidazole [Flagyl] 500 mg tablet 500 mg PO Q8H Qty: 30 RF: 0 ciprofloxacin HCl [Cipro] 500 mg tablet 500 mg PO BID Qty: 20 RF: 0 No Action fexofenadine 180 mg tablet 180 mg PO DAILY RF: 0 aspirin [Adult Low Dose Aspirin] 81 mg tablet,delayed release (DR/EC) 81 mg PO DAILY RF: 0 simvastatin 40 mg tablet 40 mg PO BEDTIME RF: 0 amitriptyline 25 mg tablet 25 mg PO DAILY RF: 0 metformin 1,000 mg tablet 1,000 mg PO BID RF: 0 esomeprazole magnesium 40 mg capsule,delayed release(DR/EC) 40 mg PO DAILY RF: 0 lisinopril 5 mg tablet 5 mg PO DAILY RF: 0 azelastine 137 mcg (0.1 %) aerosol,spray 2 spray NASAL BID RF: 0 lysine 500 mg tablet 500 mg PO DAILY RF: 0 carboxymethylcellulose sodium drops EYE-BOTH RF: 0 krill oil 500 mg capsule PO RF: 0 calcium carb-mag ox-zinc gluc 333-133-5 mg tablet PO RF: 0 COQ10 300 mg PO DAILY RF: 0 ibuactin and migragard PO RF: 0 (DME) Respironics Dreamstation CPAP Qty: 1 RF: 0 Referrals: Kristine Silver MD [Primary Care Provider] -
[2020-01-04 07:18] LABS: Add Manual Diff / Slide Review NO; Basophils Absolute Auto 100 /uL (0-100); Basophils Percent Auto 0.8 % (0-2); Eosinophils Absolute Auto 400 /uL (0-450); Hematocrit 44.6 % (36-46); Hemoglobin 14.9 g/dL (12.0-16.0); Lymphocytes Absolute Auto 3000 /uL (1100-4500); Lymphocytes Percent Auto 39.1 % (25-40); Mean Corpuscular HGB Conc 33.4 % (30-36); Mean Corpuscular Volume 86.8 fL (80-100); Monocytes Absolute Auto 700 /uL (0-900); Monocytes Percent Auto 9.7 % (3-14); Neutrophils Absolute Auto 3500 /uL (1500-7000); Neutrophils Percent Auto 45.4 % (50-75); Platelet Count 200 X10^3/uL (150-400); Red Blood Cell Count 5.13 X10^6/uL (4.0-5.2); Red Cell Distribution Width 13.1 % (11.6-14.8); White Blood Cell Count 7.7 X10^3/uL (4.5-11.0)
[2020-01-04 07:30] LABS: Lipase 167 U/L (23-300)
[2020-01-04 07:31] LABS: Lactate (Lactic Acid) 3.1 mmol/L (0.7-2.1)
[2020-01-04 07:32] LABS: Alanine Aminotransferase 46 IU/L (<35); Albumin 4.5 g/dL (3.5-5.0); Albumin Globulin Ratio 1.4 (1.0-2.8); Alkaline Phosphatase 94 U/L (38-126); Aspartate Aminotransferase 42 IU/L (14-36); Bilirubin Total 0.5 mg/dL (0.2-1.3); Blood Urea Nitrogen 18 mg/dL (7-17); Calcium 9.6 mg/dL (8.4-10.2); Carbon Dioxide 24 mmol/L (22-32); Chloride 104 mmol/L (98-107); Estimated Glomerular Filt Rate > 60.0 mL/min (>60); Globulin 3.2 g/dL (1.7-4.1); Glucose 172 mg/dL (80-110); HEMOLYSIS 15 (0-50); Potassium 4.4 mmol/L (3.4-5.1); Sodium 138 mmol/L (137-145); Total Protein 7.7 g/dL (6.3-8.2)
[2020-01-04] MEDS: SODIUM CHLORIDE 0.9% 1,000 ML 1000 ML IV ×2 (08:20→09:01)
[2020-01-04] MEDS: metroNIDAZOLE 500 MG/100 ML PIGGYBACK 100 MG IV (09:00)
[2020-01-04] MEDS: levoFLOXacin 750 MG/150 ML PIGGYBACK 100 MG IV (09:07)
[2020-01-04 09:14] LABS: Reflexed Lactate in 2 Hours Y
[2020-01-04 10:18] LABS: Lactate 2HR (Lactic Acid Rflx) 2.1 mmol/L (0.7-2.1)
== END 2020-01-04 10:43 | disposition home or self-care (01) ==
PROVIDERS: Emergency Medicine; Emergency Provider Emergency Medicine; PCP Internal Medicine
DX: K57.92 Diverticulitis of intestine, part unspecified, without perforation or abscess without bleeding (principal); R30.0 Dysuria; I10 Essential (primary) hypertension; M54.5 Low back pain
CPT/HCPCS: 36415; 74177; 80053; 81003; 83605; 83690; 85025; 96361; 96365; 96366; 96368; 99284; J1956; Q9967

== ENCOUNTER → 2020-01-23 11:59 | Outpatient (CLI) | payer MEDICARE, OTHER, SELFPAY ==
--- NOTE | 2020-01-23 | DI.MG.S_ITS ---
BILATERAL DIGITAL SCREENING MAMMOGRAM 3D/2D WITH CAD: 01/23/2020 CLINICAL: Routine screening. Family history of breast cancer. Comparison is made to exams dated: 01/05/2019 mammogram - [facility], 12/20/2017 mammogram, and 01/04/2017 mammogram - [facility]. There are scattered fibroglandular elements in both breasts. Current study was also evaluated with a Computer Aided Detection (CAD) system. No significant masses, calcifications, or other findings are seen in either breast. There has been no significant interval change. IMPRESSION: NEGATIVE There is no mammographic evidence of malignancy. A 1 year screening mammogram is recommended. This exam was interpreted at Station ID: [id number]. NOTE: For mammograms, a report in lay terms will be sent to the patient. Approximately 15% of breast malignancies will not be visualized mammographically. In the management of a palpable breast mass, a negative mammogram must not discourage biopsy of a clinically suspicious lesion. Electronically Signed By: Sergio diaz/sammie:01/23/2020 13:06:17 letter sent: Normal Exam ACR BI-RADS Category 1: Negative 3341F
== END ==
PROVIDERS: PCP Internal Medicine; Referring Provider Internal Medicine; Visit Provider Internal Medicine
DX: Z12.31 Encounter for screening mammogram for malignant neoplasm of breast (principal); Z80.3 Family history of malignant neoplasm of breast
CPT/HCPCS: 77063; 77067

== ENCOUNTER → 2020-07-28 11:24 | Outpatient (CLI) | payer MEDICARE, OTHER, SELFPAY ==
--- NOTE | 2020-07-28 | DI.MRI.S_ITS ---
PROCEDURE: MR SHOULDER RT WO CON INDICATIONS: Pain in right shoulder TECHNIQUE: Noncontrast oblique coronal T2 fast spin echo with fat saturation, oblique sagittal T1 spin echo and T2 fast spin echo with fat saturation, axial T1 spin echo and T2 fast spin echo with fat saturation through the shoulder. COMPARISON: [facility] [place], CR, XR SHOULDER 2+ VIEWS RIGHT, 07/17/2020, 15:03. FINDINGS: Image quality: Excellent. Rotator cuff: There is full-thickness tearing of the mid/posterior supraspinatus tendon at the humeral insertion site measuring roughly 9 mm anteroposterior. There is low-grade partial-thickness articular surface tearing of the mid and inferior aspect of the subscapularis tendon demonstrating musculotendinous junction extension. There is low-grade partial-thickness intrasubstance tearing of the anterior, mid, and posterior infraspinatus tendon at the humeral insertion site extending to the musculotendinous junction. Teres minor tendon is intact. Bones and bursae: No bone marrow contusions or fractures. Moderate acromioclavicular joint degeneration. The acromion demonstrates conventional anatomy, without an os acromiale. No pathologic subacromial-subdeltoid or subcoracoid bursal fluid is present. Capsule and soft tissues: There is amorphous high T2 signal intensity involving the posterosuperior labrum, indicating labral tearing. The long head of the biceps tendon demonstrates high-grade tearing. The rotator interval appears normal, without fibrosis. The coracohumeral ligament is normal in thickness. IMPRESSION: 1. Full-thickness tearing of the supraspinatus tendon. 2. Partial-thickness tearing of the subscapularis and infraspinatus tendons. 3. Posterosuperior glenoid labral tear. 4. Acromioclavicular joint osteoarthritis. 5. Biceps tendon tear. Dictated by: Angie Pop M.D. on 07/28/2020 at 14:28 Approved by: Angie Pop M.D. on 07/28/2020 at 14:31
== END ==
PROVIDERS: PCP Internal Medicine; Referring Provider Orthopaedic Surgery; Visit Provider Orthopaedic Surgery
DX: M25.511 Pain in right shoulder (principal); M75.121 Complete rotator cuff tear or rupture of right shoulder, not specified as traumatic; S43.491A Other sprain of right shoulder joint, initial encounter; S46.111A Strain of muscle, fascia and tendon of long head of biceps, right arm, initial encounter; M19.011 Primary osteoarthritis, right shoulder
CPT/HCPCS: 73221

== ENCOUNTER → 2021-02-10 14:39 | Outpatient (CLI) | payer MEDICARE, OTHER, SELFPAY ==
--- NOTE | 2021-02-10 | DI.MG.S_ITS ---
BILATERAL DIGITAL SCREENING MAMMOGRAM 3D/2D WITH CAD: 02/10/2021 CLINICAL: Routine screening. Family history of breast cancer. Comparison is made to exams dated: 01/23/2020 mammogram, 01/05/2019 mammogram - [facility], and 12/20/2017 mammogram - [facility]. There are scattered fibroglandular elements in both breasts. Current study was also evaluated with a Computer Aided Detection (CAD) system. No significant masses, calcifications, or other findings are seen in either breast. There has been no significant interval change. IMPRESSION: NEGATIVE There is no mammographic evidence of malignancy. A 1 year screening mammogram is recommended. This exam was interpreted at Station ID: [id number]. NOTE: For mammograms, a report in lay terms will be sent to the patient. Approximately 15% of breast malignancies will not be visualized mammographically. In the management of a palpable breast mass, a negative mammogram must not discourage biopsy of a clinically suspicious lesion. Electronically Signed By: Renny white/sammie:02/10/2021 16:01:21 letter sent: Normal Exam ACR BI-RADS Category 1: Negative 3341F
== END ==
PROVIDERS: PCP Internal Medicine; Referring Provider Internal Medicine; Visit Provider Internal Medicine
DX: Z12.31 Encounter for screening mammogram for malignant neoplasm of breast (principal); Z80.3 Family history of malignant neoplasm of breast
CPT/HCPCS: 77063; 77067

== ENCOUNTER → 2022-11-10 | Outpatient (CLI) | payer MEDICARE, OTHER, SELFPAY ==
--- NOTE | 2022-11-10 | DI.RAD.S_ITS ---
Bone Density Report Name: PARMJIT CHICAS Age: 71 Sex: Female Ethnicity: Date of : 1950 Indication: postmenopausal; screening for osteoporosis; Referring Provider: DONALD HOLLAND Study: Bone densitometry was performed. Exam Date: November 10, 2022 Accession number: [id number] Bone Density: Region BMD T-score Z-score Classification AP Spine(L1-L4) 0.569 -4.3 -2.2 Osteoporosis Femoral Neck (Left) 0.626 -2.0 -0.2 Osteopenia Total Hip (Left) 0.678 -2.2 -0.7 Osteopenia Femoral Neck (Right) 0.651 -1.8 0.0 Osteopenia Total Hip (Right) 0.729 -1.7 -0.2 Osteopenia Total Hip Mean 0.704 -2.0 -0.5 Osteopenia World Health Organization criteria for BMD impression classify patients as: Normal (T-score at or above -1.0), Osteopenia (T-score between -1.0 and -2.5), or Osteoporosis (T-score at or below -2.5). 10-year Fracture Risk: FRAX not reported because: Some T-score for Spine Total or Hip Total or Femoral Neck at or below -2.5 Impression: The patient has osteoporosis, based on the Total Spine T-score. Discussion: HIGH RISK OF FRACTURE. BONE DENSITY IS UNDESIRABLY LOW AT ONE OR MORE SKELETAL SITES, CONSISTENT WITH OSTEOPOROSIS. ALSO, BONE DENSITY IS LOWER THAN EXPECTED FOR AGE AND SEX AT ONE OR MORE SKELETAL SITES; RECOMMEND A DILIGENT SEARCH FOR SECONDARY CAUSES OF BONE LOSS. This patient's lowest T-score meets the World Health Organization's (WHO) criteria for osteoporosis at one or more sites (T-score -2.5 or below). In untreated patients, the risk of osteoporotic fracture increases approximately two-fold for each 1.0 SD decrease in T-score. Low bone density is not the only risk factor for fracture; also consider factors such as patient's age, frailty or poor health, risk of falling, risk of injury, previous osteoporotic fracture, family history of osteoporosis, cigarette smoking, low body weight, etc. Not everyone with low bone mineral density has osteoporosis; osteomalacia and other metabolic bone disorders should also be considered. Patients who have osteoporosis should be evaluated for specific diseases and conditions (secondary causes) that may cause or contribute to bone loss. The [place] [employer]ocr[employer] (AACE) and National Osteoporosis Foundation (NOF) recommend pharmacologic intervention for all postmenopausal women whose T-score is in this range. Also, this patient's bone mineral density is below the range considered normal for healthy age-, sex-, and race-matched controls at least one site (Z-score -2.0 or below). This warrants careful evaluation for diseases and conditions that may contribute to accelerated bone loss. The patient should follow a healthful lifestyle (good nutrition with adequate calcium and vitamin D, and appropriate weight-bearing exercise). Follow-Up: Consider a repeat BMD and Vertebral Fracture Assessment (VFA) exam in 2 years or sooner if medically necessary, to reassess this patient's status. Reported by: DIMAS DELGADO MD on 11/10/2022 2:38:00 PM.
== END ==
PROVIDERS: PCP Family Medicine; Referring Provider Family Medicine; Visit Provider Family Medicine
DX: Z78.0 Asymptomatic menopausal state (principal); Z13.820 Encounter for screening for osteoporosis; M81.0 Age-related osteoporosis without current pathological fracture
CPT/HCPCS: 77080

== ENCOUNTER → 2023-03-28 14:40 | Outpatient (CLI) | payer MEDICARE, OTHER, SELFPAY ==
--- NOTE | 2023-03-28 | DI.RAD.S_ITS ---
PROCEDURE: XR LUMBAR SPINE 2-3V INDICATIONS: OSTEOPOROSIS LUMBAR SPINE TECHNIQUE: 3 views of the lumbar spine were acquired. COMPARISON: None. FINDINGS: Bones: 5 [id number] vertebrae are present. There is normal bony alignment. No vertebral body compression fractures. No suspicious bony lesions. Lower lumbar facet arthropathy. Soft tissues: Overlying bowel gas pattern is normal. No suspicious soft tissue calcifications. IMPRESSION: No evidence acute bony abnormality. Lower lumbar facet arthropathy. If clinical suspicion and/or symptoms persist, further assessment with repeat plain films, or advanced imaging (e.g., CT, MRI, or bone scan) may be helpful for further assessment. Dictated by: Jd Rosas M.D. on 03/28/2023 at 18:27 Approved by: Jd Rosas M.D. on 03/28/2023 at 18:27
== END ==
PROVIDERS: PCP Family Medicine; Referring Provider Internal Medicine Endocrinology, Diabetes & Metabolism; Visit Provider Internal Medicine Endocrinology, Diabetes & Metabolism
DX: M81.0 Age-related osteoporosis without current pathological fracture (principal); M47.816 Spondylosis without myelopathy or radiculopathy, lumbar region
CPT/HCPCS: 72100

== ENCOUNTER 2023-07-08 12:29 | Day surgery (SDC) | payer MEDICARE, OTHER, SELFPAY ==
[2023-07-08] MEDS: LACTATED RINGERS 1,000 ML 42 ML IV (13:09)
[2023-07-08 13:11] VITALS: BP 153/90; PULSE 76; RESP 16; TEMP 36.4; O2SAT 98
--- NOTE | 2023-07-08 13:58 | PM.HP.1 ---
History of Present Illness History of Present Illness Date Patient Seen: 07/08/23 Time Patient Seen: 13:58 Chief complaint: Dx Colonoscopy w/poss bx Narrative: 72-year-old woman history of diverticular disease here for screening colonoscopy. Last scope 10 years ago. No family history of intestinal malignancy. No abdominal concerns today. 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) Obstructive sleep apnea of adult Type 2 diabetes mellitus Social History marital status: details: to Melvin, lives in [place] household members: spouse lives independently: Yes caregiver/support person: No housing: house Smoking Status: Never smoker alcohol intake: current Meds Home Medications and Allergies Home Medications Medication Instructions Recorded Confirmed Type amitriptyline 25 mg tablet 25 mg PO DAILY 06/26/18 07/08/23 History aspirin 81 mg tablet,delayed 81 mg PO DAILY 06/26/18 07/08/23 History release (Adult Low Dose Aspirin) azelastine 137 mcg (0.1 %) nasal 2 spray intranasal BID 06/26/18 07/08/23 History spray aerosol calcium carbonate 333 mg-magnesium 1 tab PO DAILY 06/26/18 07/08/23 History oxide 133 mg-zinc gluc 5 mg tablet metformin 1,000 mg tablet 1,000 mg PO BID 06/26/18 07/08/23 History simvastatin 40 mg tablet 40 mg PO BEDTIME 06/26/18 07/08/23 History Respironics Dreamstation CPAP #1 ea 06/28/18 12/27/18 History dulaglutide 0.75 mg/0.5 mL 0.75 mg SUBCUT QWEEK 07/08/23 07/08/23 History subcutaneous pen injector (Trulicity) lisinopril 5 mg tablet 5 mg PO DAILY 07/08/23 07/08/23 History Allergies Allergy/AdvReac Type Severity Reaction Status Date / Time ceftriaxone [From Rocephin] Allergy Severe Anaphylaxis Verified 07/08/23 13:32 Exam Vital Signs (past 8 hours): - 07/08/23 13:11 Temperature 97.6 F Pulse Rate 76 Respiratory Rate 16 Blood Pressure 153/90 H Pulse Oximetry 98 Oxygen Delivery Method Room Air Oxygen Delivery Method Room Air Narrative Exam Narrative: General adult woman alert oriented no acute distress Chest nonlabored respiration Extremities warm well perfused Assessment & Plan Assessment & Plan narrative: The patient requires colorectal screening and colonoscopy is recommended. Technical details were discussed. Risks, benefits, alternatives explained. Risks including but not limited to myocardial infarction, aspiration, bleeding, pain, missed lesion, incomplete examination, need for further radiographic studies, intestinal injury, and need for major abdominal surgery were discussed. All questions were answered to their satisfaction, and they are in agreement with this plan.
[2023-07-08 14:17] VITALS: BP 119/77; PULSE 73; RESP 14; TEMP 36.3; O2SAT 94
[2023-07-08 14:22] VITALS: BP 104/71; PULSE 71; RESP 16; O2SAT 98
[2023-07-08 14:28] VITALS: BP 120/67; PULSE 70; RESP 18; O2SAT 100
--- NOTE | 2023-07-08 14:29 | P.OP.COLON_ITS ---
Operative Date/Time/Diagnoses Date of procedure: 07/08/23 Time of procedure: 14:38 Pre-op diagnosis: Diverticulosis Procedure & Clinicians Study performed: Screening colonoscopy Same procedure as scheduled: Yes Indications: Colorectal screening Surgeon: Karlo Carrillo Procedure Notes Procedure in detail: The history and physical was performed/updated and the patient is ASA class is 2. The procedure was discussed in detail with the patient. Potential risks complications including infection, bleeding, missed diagnosis, perforation, need for surgery, and were explained. Their questions were answered and informed consent was obtained. Patient was brought to the procedure room and placed standard monitoring equipment. The patient's vital signs were monitored continuously throughout the entire procedure. Prior to starting time-out was performed. The patient was placed in the left lateral recumbent position. Procedural sedation was administered by anesthesia. Examination began with a thorough inspection of the perianal area there was no evidence of fissures, fistulae, external hemorrhoids or cutaneous malignancy. The colonoscopy scope was then placed into the anal canal and was advanced to the cecum, which was identified by the ileocecal v alve, the appendiceal orifice and the confluence of the taenia. The scope was then slowly withdrawn examining colon thoroughly in all directions, irrigating it of any residual stool. The scope was retroflexed within the rectum The patient tolerated the procedure well. They will be discharged once criteria are met. The prep was of fair quality. The withdrawl time was 7 minutes. FINDINGS * No masses or polyps. * Pandiverticulosis Specimen(s): none sent Impression: Diverticulosis Post-procedure Recommendations: High fiber diet Plan for aftercare: No further colonoscopy necessary unless symptomatic Disposition: same day surgery
[2023-07-08 14:38] VITALS: BP 142/83; PULSE 70; RESP 17; TEMP 36.2; O2SAT 97
[2023-07-08 15:04] VITALS: BP 152/80; PULSE 65; RESP 14; TEMP 36.3; O2SAT 100
== END 2023-07-08 15:07 | disposition home or self-care (01) ==
PROVIDERS: PCP Family Medicine; Referring Provider Surgery; Visit Provider Surgery
PROC: 0DJD8ZZ Inspection of Lower Intestinal Tract, Via Natural or Artificial Opening Endoscopic (ICD-10-PCS; CPT 45378; principal; 2023-07-08 13:45)
DX: Z12.11 Encounter for screening for malignant neoplasm of colon (principal); K57.30 Diverticulosis of large intestine without perforation or abscess without bleeding
CPT/HCPCS: G0121; 82962; J2704

== ENCOUNTER → 2024-04-02 13:44 | Outpatient (CLI) | payer MEDICARE, OTHER, SELFPAY ==
--- NOTE | 2024-04-02 13:46 | DI.RAD.S_ITS ---
PROCEDURE: XR DEXA AXIAL SKELETON INDICATIONS: Age-related osteoporosis without current pathologi COMPARISON: [facility], , XR DEXA AXIAL SKELETON, 11/10/2022, 14:26. FINDINGS: Lumbar Spine: Bone mineral density 0.5 a 6 g/cm2, T score -4.2. There is interval 3% increase in total lumbar spine bone mineral density. Left Femoral Neck: Bone mineral density 0.608 g/cm2, T score -2.2. There is interval 2.8 % decrease in left femoral neck bone mineral density. Left Hip: Bone mineral density 0.676 g/cm2, T score -2.2. There is interval 0.3% decrease in total left hip bone mineral density. Fracture Risk Calculation (when applicable): 10-year fracture risk of a major osteoporotic fracture 6.7 percent and of a hip fracture 1.6 percent. (T score greater or equal to -1.0 to: NORMAL) (T score from -1.1 to -2.4: OSTEOPENIA) (T score less than or equal to -2.5: OSTEOPOROSIS) IMPRESSION: Osteoporosis. Follow-up guidelines as follows: Osteoporosis: Consider a repeat DEXA and Vertebral Fracture Assessment (VFA) exam in 2 years or sooner if medically necessary, to reassess this patient's status. Osteopenia: Consider a repeat DEXA in 2-3 years to reassess this patient's status, or if there is a new clinical indication. Normal: Consider a repeat DEXA in 5 years or sooner, or if there is a new clinical indication. All treatment decisions require clinical judgment and consideration of individual patient factors, including patient preferences, comorbidities, previous drug use, risk factors not captured in the FRAX model (e.g., frailty, falls, vitamin D deficiency, increased bone turnover, interval significant decline in bone density ) and possible under- or over-estimation of fracture risk by FRAX. In addition, the NOF Guide recommends that FDA-approved medical therapies be considered in postmenopausal women and men age >= 50 years with a: * Hip or vertebral (clinical or morphometric) fracture * T-score of <=-2.5 at the spine or hip * Ten-year fracture probability by FRAX of >= 3% for hip fracture or >=20% for major osteoporotic fracture. Dictated by: Kirill Ribeiro M.D. on 04/02/2024 at 17:10 Approved by: Kirill Ribeiro M.D. on 04/02/2024 at 17:11
== END ==
PROVIDERS: PCP Family Medicine; Referring Provider Internal Medicine Endocrinology, Diabetes & Metabolism; Visit Provider Internal Medicine Endocrinology, Diabetes & Metabolism
DX: M81.0 Age-related osteoporosis without current pathological fracture (principal)
CPT/HCPCS: 77080